=== PATIENT | female | born 1965 | race African-American/Black ===

== ENCOUNTER 2023-09-28 17:12 | Emergency (ER) | payer BC, SELFPAY ==
--- NOTE | 2023-09-28 17:18 | ED.EXTPRO ---
HPI - Extremity Problem General Chief complaint: Skin/Abscess/Foreign Body Stated complaint: Right Hand Pain Time Seen by Provider: 09/28/23 17:18 Source: patient Mode of arrival: ambulatory Limitations: no limitations History of Present Illness HPI Narrative: Caryn is a 58 year old female patient presenting to the clinic today with c/o right hand index finger injury. She reports yesterday she was at a restaurant and she put her hand down to scoot herself up in the chair and caught her finger on a nail. She has a small superficial laceration to the dorsal aspect of the distal finger. She is concerned about tetanus. Also reports that she does have a history of MRSA and is concerned that it may become infected. Related Data Allergies Allergy/AdvReac Type Severity Reaction Status Date / Time grapefruit Allergy Mild HIVES Verified 05/27/14 17:59 hydrocodone Allergy Mild Verified 05/27/14 17:59 strawberry Allergy Mild HIVES Verified 05/27/14 17:59 codeine Allergy Unknown Verified 02/15/18 10:50 Penicillins Allergy Unknown Verified 02/15/18 10:50 MACADAMIA NUTS Allergy Mild HIVES Uncoded 11/19/09 19:00 Shrimp Allergy Mild HIVES Uncoded 05/27/14 17:59 Review of Systems Review of Systems: Pertinent positives per HPI. Patient denies any fever, chills, rash, headache, visual changes, dizziness, cough, runny nose, sore throat, shortness of breath, chest pain, palpitations, nausea, vomiting, diarrhea, constipation, abdominal pain, or any urinary issues. PMFSH Comments At the time of my signature, I reviewed and agree with the nursing past medical, surgical, social, and family history. There is no relevant family history pertinent to the patient complaint. Exam Narrative: General: Well-developed, well nourished, in no apparent distress Head: Normocephalic, atraumatic. Cardio: Regular rate and rhythm, s1 and s2 normal, no murmur appreciated. Resp: Clear to auscultation bilaterally, no rhonchi, rales, wheezing or rubs. Musculoskeletal: No deformity, tender to palpation to palpation over the distal dorsal aspect of the right index finger, superficial laceration noted, grossly normal range of motion, muscle strength strong and equal, peripheral pulse strong, no edema, no cyanosis, normal gait and station Course Course Emergency Course: Portions of this record may have been created with voice recognition software. Level of Care: Express Care Visit Vital Signs Vital signs: Vital Signs Temperature 36.3 C L 09/28/23 17:36 Pulse Rate 82 09/28/23 17:36 Respiratory Rate 16 09/28/23 17:36 Blood Pressure 132/87 09/28/23 17:36 Pulse Oximetry 100 09/28/23 17:36 Oxygen Delivery Room Air 09/28/23 17:36 Temperature 36.3 C L 09/28/23 17:36 Pulse Rate 82 09/28/23 17:36 Respiratory Rate 16 09/28/23 17:36 Blood Pressure 132/87 09/28/23 17:36 Pulse Oximetry 100 09/28/23 17:36 Oxygen Delivery Room Air 09/28/23 17:36 Vital signs reviewed MDM - Extremity (Nontraumatic) MDM Narrative Medical decision making narrative: At the time of visit patient is resting comfortably on the exam table. Patient appears to be nontoxic. Plan: Will send in prescription for some mupirocin cream for the patient to put over the wound. Tetanus shot was given in the clinic today. Supportive measures were discussed with the patient and they voiced understanding discharge instructions and agrees to treatment plan. Return precautions reviewed Differential Diagnosis Differential diagnosis: Likely cellulitis and other (Laceration, avulsion, abrasion, skin infection) Discharge Plan Discharge Clinical Impression: Superficial laceration of finger Patient Disposition: Home, Self-Care Condition: Stable Instructions: Antibiotic Form, Finger Laceration (ED) Additional Instructions: May apply band aide covering as needed. Apply mupirocin cream to the affected area twice daily x7 days Keep wound adalberto
[2023-09-28 17:36] VITALS: BP 132/87; PULSE 82; RESP 16; TEMP 36.3; O2SAT 100
[2023-09-28] MEDS: TETANUS,DIPHTHERIA,AC PERTUSSIS ADULT (0.5 ML) BOOSTRIX IM (17:43)
== END 2023-09-28 17:58 | disposition home or self-care (01) ==
PROVIDERS: Emergency Provider Nurse Practitioner Family
DX: S61.210A Laceration without foreign body of right index finger without damage to nail, initial encounter (principal); Z23 Encounter for immunization; W45.8XXA Other foreign body or object entering through skin, initial encounter; Y92.511 Restaurant or cafe as the place of occurrence of the external cause
CPT/HCPCS: 90471; 90715; 99213; G0463

== ENCOUNTER 2024-03-24 15:13 | Emergency (ER) | payer BC, SELFPAY ==
[2024-03-24 15:21] VITALS: BP 146/78; PULSE 83; RESP 16; TEMP 36.6; O2SAT 100
--- NOTE | 2024-03-24 15:21 | ED.EXTPRO ---
HPI - Extremity Problem General Chief complaint: Extremity Problem,Nontraumatic Stated complaint: Right Arm/Hand Pain Time Seen by Provider: 03/24/24 15:39 Source: patient and RN notes reviewed Mode of arrival: ambulatory Limitations: no limitations History of Present Illness HPI Narrative: 59-year-old female presents with concern for right elbow pain that started Sunday. 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 She denies injury or trauma. 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 MD Complaint: extremity pain Related Data Home Medications Medication Instructions Recorded Confirmed atorvastatin 20 mg tablet mg 03/24/24 pantoprazole 40 mg tablet,delayed mg PO 03/24/24 release semaglutide 0.25 mg or 0.5 mg (2 mg subcut 03/24/24 mg/3 mL) subcutaneous pen injector (Ozempic) Allergies Allergy/AdvReac Type Severity Reaction Status Date / Time grapefruit Allergy Mild HIVES Verified 03/24/24 15:20 hydrocodone Allergy Mild Hives Verified 03/24/24 15:20 strawberry Allergy Mild HIVES Verified 03/24/24 15:20 codeine Allergy Unknown Hives Verified 03/24/24 15:20 Penicillins Allergy Unknown Hives Verified 03/24/24 15:20 MACADAMIA NUTS Allergy Mild HIVES Uncoded 03/24/24 15:20 Shrimp Allergy Mild HIVES Uncoded 03/24/24 15:20 Review of Systems Review of Systems: CONSTITUTIONAL: Denies malaise, chills, sweats, or fever. SKIN: Denies rash or itching, open skin, laceration, abrasion, redness, warmth, swelling. MUSCULOSKELETAL: Reports right elbow pain NEUROLOGIC: Denies numbness, weakness All systems reviewed & are unremarkable except as noted in HPI and below PMFSH Comments At time of signature, agree with nursing past medical, surgical, social and family history. There is no relevant family history pertinent to the presenting complaint Exam Narrative: GENERAL: Well-appearing, well-nourished, and in no acute distress. HEAD: Normocephalic, atraumatic. EYES: PERRLA, conjunctivae clear NECK: Supple. CHEST: Speaks in full sentences. No respiratory distress. HEART: Regular rate and rhythm. Normal and equal peripheral pulses. EXTREMITIES: Right upper extremity has normal strength and sensation, normal range of motion. No edema or ecchymosis. Slightly decreased histologic technician strength. Normal sensation with sensitivity to light touch and pain. No point tenderness. No open wounds, no skin tenting, no devitalized tissue or atrophy, no trophic changes, no obvious deformity, alignment normal, nearby joints and structures intact. Distal pulses palpable and equal bilaterally, skin warm, dry, pink. Capillary refill less than 3 seconds. SKIN: Warm, dry, no rash. NEURO: Alert and oriented x3. PSYCH: Normal mood and affect Course Course Emergency Course: Patient is aware of diagnosis, understands and agrees to treatment plan. Anticipatory guidance given. Patient agrees to follow-up as directed and is aware of reasons to seek care at the emergency department. Portions of this record may have been created with voice recognition software Level of Care: Express Care Visit Vital Signs Vital signs: Reviewed. MDM - Extremity (Nontraumatic) MDM Narrative Medical decision making narrative: Patients pain is consistent with musculoskeletal etiology. No signs of neurological or vascular compromise on exam. Compartments and tissues are soft without signs of compartment syndrome. Pain is felt appropriate for further evaluation on an outpatient basis. Critical Care Time Critical Care Time Critical Care Time: No Discharge Plan Discharge Clinical Impression: Epicondylitis Patient Disposition: Home, Self-Care Condition: Stable Instructions: Tennis Elbow (ED) Additional Instructions: Use tennis elbow support brace, that can be purchased at any pharmacy, as directed on right elbow. Apply ice to 3 times daily to right elbow. Follow elbow exe
== END 2024-03-24 16:14 | disposition home or self-care (01) ==
PROVIDERS: Emergency Provider Nurse Practitioner; PCP Internal Medicine
DX: M77.01 Medial epicondylitis, right elbow (principal); E78.00 Pure hypercholesterolemia, unspecified; K21.9 Gastro-esophageal reflux disease without esophagitis; Z86.14 Personal history of Methicillin resistant Staphylococcus aureus infection
CPT/HCPCS: 99213; G0463